=== PATIENT | male | born 1950 | race Caucasian/White ===

== ENCOUNTER → 2017-12-05 | Outpatient (CLI) | payer MEDICARE, OTHER ==
[~2017-12-05] MED LIST: ALIGN; ASPI-715 PO; BUPXL150 PO; CEPH-13 PO; DIP25 PO; DUT0.5 PO; DUTA1CPM3 PO; LOM PO; PEN250 PO; PER PO; RAMI5CAP63 PO; SIMV-42 PO; TAM4 PO
[2017-12-05 11:03] LABS: LDL CHOLESTEROL 100 mg/dl
== END ==
LOC: LAB 08:43
PROVIDERS: ATTEND Family Medicine
DX: E78.5 Hyperlipidemia, unspecified (principal); R53.1 Weakness; I95.9 Hypotension, unspecified
CPT/HCPCS: 36415; 82040; 82247; 82310; 82374; 82435; 82465; 82565; 82947; 83718; 84075; 84132; 84155; 84295; 84450; 84460; 84478; 84520

== ENCOUNTER → 2018-07-15 | Outpatient (CLI) | payer MEDICARE, OTHER ==
--- NOTE | 2018-07-15 10:56 | RADIOLOGY IMAGING REPORT ---
FACILITY: [facility] [place] PATIENT NAME: Holger Watson : 1950 MR: [id number] V: [id number] EXAM DATE: ORDERING PHYSICIAN: JOVITA LLOYD TECHNOLOGIST: Location: [facility] Patient: Holger Watson : 1950 Visit/Account:[id number] Date of Sevice: 07/15/2018 LUMBAR SPINE 4 VIEWS HISTORY: Lower back pain, two months. COMPARISON: None. FINDINGS: Five views including bilateral oblique images are submitted. There is a transitional lumbosacral vertebra with six nonrib-bearing lumbar-type vertebra. Subtle ri ght curvature lumbar spine, apex L3 vertebra. 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 Mildly increased facet sclerosis is noted at the remaining levels. Lateral neutral positioning demonstrates 3 mm retrolisthesis of L5 on the transitional S1 vertebra wi th 3 mm anterior listhesis of the lumbarized S1 vertebra on the S2 segment. There is moderate disc n arrowing and increased sclerosis at L5-S1 and S1-S2. IMPRESSION: 1. 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 Finding suggestive of a bilateral pars defect i nvolving this vertebral body with subsequent grade 1 retrolisthesis L5 on S1 with grade 1 anterolisth esis of the transitional S1 vertebra on S2. 2. Moderate spondylotic changes L5-S1 and S1-S2. Report Dictated By: Nasir Cabrera MD at 07/15/2018 10:46 AM Report E-Signed By: Nasir Cabrera MD at 07/15/2018 10:51 AM WSN:[id number]
== END ==
LOC: RAD 09:20
PROVIDERS: ATTEND Family Medicine
DX: M54.5 Low back pain (principal)
CPT/HCPCS: 72120

== ENCOUNTER → 2018-09-04 | Outpatient (CLI) | payer MEDICARE, OTHER ==
[2018-09-04 10:36] LABS: LDL CHOLESTEROL 121 mg/dl
== END ==
LOC: LAB 08:43
PROVIDERS: ATTEND Family Medicine
DX: I95.9 Hypotension, unspecified (principal); E78.5 Hyperlipidemia, unspecified; R53.1 Weakness; R23.3 Spontaneous ecchymoses; N40.0 Benign prostatic hyperplasia without lower urinary tract symptoms
CPT/HCPCS: 36415; 82040; 82247; 82310; 82374; 82435; 82465; 82565; 82947; 83718; 84075; 84132; 84155; 84295; 84450; 84460; 84478; 84520